=== PATIENT | male | born 1995 | race Caucasian/White ===

== ENCOUNTER 2017-11-08 21:24 | Emergency (ER) | payer OTHER ==
[2017-11-08] MEDS: predniSONE 20 MG TAB PO (23:02)
[2017-11-08] MEDS: DIPHENHYDRAMINE 25 MG CAP PO (23:02)
== END 2017-11-08 23:28 | disposition home or self-care (01) ==
LOC: FTE 21:24
DX: S40.861A Insect bite (nonvenomous) of right upper arm, initial encounter (principal); S40.862A Insect bite (nonvenomous) of left upper arm, initial encounter; W57.XXXA Bitten or stung by nonvenomous insect and other nonvenomous arthropods, initial encounter; Y92.9 Unspecified place or not applicable
CPT/HCPCS: 99283; J7512